=== PATIENT | female | born 1970 ===

== ENCOUNTER 2024-03-05 20:01 | Emergency (ER) | payer SELFPAY ==
[2024-03-05] MEDS: Ibuprofen 600 MG Tab PO ONE (21:20)
[2024-03-05] MEDS: Acetaminophen 500 MG Tab PO ONE (21:21)
== END 2024-03-05 21:44 | disposition home or self-care (01) ==
LOC: MW.ED 20:01
DX: S89.92XA Unspecified injury of left lower leg, initial encounter (principal); Z75.8 Other problems related to medical facilities and other health care; Z88.2 Allergy status to sulfonamides; X50.1XXA Overexertion from prolonged static or awkward postures, initial encounter; Y93.89 Activity, other specified
CPT/HCPCS: 73562; 99283; A9270